=== PATIENT | male | born 1955 | race Caucasian/White ===

== ENCOUNTER 2019-01-19 08:06 | Emergency (ER) | payer MEDICARE, MEDICAID ==
[2019-01-19 08:09] VITALS: BMI 29.5
[2019-01-19 08:11] VITALS: PULSE 86; RESP 17; TEMP 97.3; O2SAT 97
--- NOTE | 2019-01-19 08:41 | ED PDOC ---
HPI: Hypertension/Hypotension Time Seen by Provider: 01/19/19 08:24 Chief Complaint (Nursing): High Blood Pressure Chief Complaint (Provider): High Blood Pressure History Per: Patient History/Exam Limitations: no limitations Current Symptoms Are (Timing): Better Additional Complaint(s): 63 year old male with medical history of hypertension, presents to the emergency department for an evaluation of high blood pressure. Patient states he stopped taking his daily Losartan and Toprol on his own as he felt that his blood pressure was good. Recently, he was treated with antibiotics for a skin in fection then noticed his blood pressure was elevated. He restarted Losartan and has a pending appointment with his PCP on 01/22/19, however, came to ED today to get a refill for Toprol. Patient reports feeling slightly lightheaded but denies any nausea, vomiting, diarrhea, chest pain, shortness of breath, headache, weakness, numbness, or abdominal pain. Of note, patient states he took an extra blood pressure pill last night to compensate then, again, this morning. PCP: Dr. Ndiia Hogan Past Medical History Reviewed: Historical Data, Nursing Documentation, Vital Signs Vital Signs: Last Vital Signs Temp 97.3 F L 01/19/19 08:09 Pulse 86 01/19/19 08:09 Resp 17 01/19/19 08:09 BP 150/93 H 01/19/19 08:25 Pulse Ox 97 01/19/19 08:09 - Medical History PMH: Fractures (NASAL), HTN, Hypercholesterolemia, Kidney Stones (PASSED ON OWN), Chronic Kidney Disease - Family History Family History: States: CAD - Immunization History Hx Tetanus Toxoid Vaccination: No - Home Medications Home Medications: Ambulatory Orders Medication Instructions Recorded Losartan [Cozaar] 50 mg PO DAILY 03/04/15 - Allergies Allergies/Adverse Reactions: Allergies Allergy/AdvReac Type Severity Reaction Status Date / Time No Known Allergies Allergy Verified 06/05/14 12:26 Review of Systems ROS Statement: Except As Marked, All Systems Reviewed And Found Negative Cardiovascular: Positive for: Light Headedness (mild). Negative for: Chest Pain Respiratory: Negative for: Shortness of Breath Gastrointestinal: Negative for: Nausea, Vomiting, Abdominal Pain, Diarrhea Neurological: Negative for: Weakness, Numbness, Headache Physical Exam - Reviewed Nursing Documentation Reviewed: Yes Vital Signs Reviewed: Yes - Physical Exam Appears: Positive for: Well, Non-toxic, No Acute Distress Head Exam: Positive for: ATRAUMATIC, NORMAL INSPECTION, NORMOCEPHALIC Skin: Positive for: Normal Color. Negative for: Rash Eye Exam: Positive for: Normal appearance, EOMI, PERRL ENT: Positive for: Normal ENT Inspection. Negative for: Pharyngeal Erythema Neck: Positive for: Normal, Supple Cardiovascular/Chest: Positive for: Regular Rate, Rhythm, Chest Non Tender. Negative for: Murmur Respiratory: Positive for: Normal Breath Sounds. Negative for: Wheezing, Respiratory Distress Gastrointestinal/Abdominal: Positive for: Normal Exam, Soft. Negative for: Tenderness Extremity: Positive for: Normal ROM (upper/lower). Negative for: Pedal Edema, Calf Tenderness Neurological/Psych: Positive for: Awake, Alert, Normal Tone, Symmetric/Intact Strength (5/5), Oriented (x3), supply assistant II-XII (intact). Negative for: Lethargic, Motor/Sensory Deficits - Laboratory Results Result Diagrams: 01/19/19 09:02 01/19/19 09:02 Interpretation Of Abn Labs: no acute - ECG ECG: Positive for: Interpreted By Me, Viewed By Me ECG Rhythm: Positive for: Normal QRS, Normal ST Segment, Sinus Rhythm O2 Sat by Pulse Oximetry: 97 (RA) Pulse Ox Interpretation: Normal - CT Scan/US CT Other Rad Studies (CT/US): Read By Radiologist Other Rad Interpretation: NO ACUTE FINDING - Progress ED Course And Treament: Pt. stable. Fu with pcp to get any additional bp monitoring and management. AAOx3. Pain free. Tolerated PO. Fu with pcp. No dizziness. Medical Decision Making Medical Decision Making: Time: 830 Initial Plan: * CT head * EKG * Labs * IV fluids Scribe Attestation: Documented by Haleigh Vega, acting as a scribe for Sherman Chavis MD. Provider Scribe Attestation: All medical record entries made by the Scribe were at my direction and personally dictated by me. I have reviewed the chart and agree that the record accurately reflects my personal performance of the history, physical exam, medical decision making, and the department course for this patient. I have also personally directed, reviewed, and agree with the discharge instructions and disposition. Disposition - Clinical Impression Clinical Impression: HTN (hypertension), Dizziness - Patient ED Disposition Is Patient to be Admitted: No Counseled Patient/Family Regarding: Studies Performed, Diagnosis, Need For Followup - Disposition Referrals: [facility] [Outside] - 01/21/19 Disposition: Routine/Home Disposition Time: 11:47 Condition: STABLE Additional Instructions: Return if not better in 3 days. Instructions: High Blood Pressure in Adults, Dizziness, Nonvertigo, (DC) Forms: [facility] ED School/Work Excuse Print Language: LIBYAN
[2019-01-19] MEDS ORDERED: Sodium Chloride 0.9% 500 ML IV STA (08:46)
[2019-01-19 09:05] LABS: BASO % 0.9 % (0.0-2.0); EOS # 0.2 K/uL (0.0-0.7); EOS % 4.4 % (0.0-4.0); HEMOGLOBIN 14.8 g/dL (12.0-18.0); LYMPH # 1.4 K/uL (1.0-4.3); LYMPH % 26.4 % (20.0-40.0); MEAN CELL VOLUME 88.5 fl (80.0-94.0); MEAN CORPUSCULAR HEMOGLOBIN 29.3 pg (27.0-31.0); MEAN CORPUSCULAR HGB CONC 33.1 g/dL (33.0-37.0); MEAN PLATELET VOLUME 8.1 fl (7.2-11.7); MONO # 0.4 K/uL (0.0-0.8); MONO % 8.5 % (0.0-10.0); NEUT # 3.1 K/uL (1.8-7.0); NEUT % 59.8 % (50.0-75.0); RBC 5.05 Mil/uL (4.40-5.90); RED CELL DISTRIBUTION WIDTH 13.8 % (11.5-14.5); WHITE BLOOD COUNT 5.2 K/uL (4.8-10.8)
[2019-01-19 09:17] LABS: ALB/GLOB RATIO 1.2 (1.0-2.1); ALBUMIN 4.4 g/dL (3.5-5.0); BLOOD UREA NITROGEN 21 mg/dl (9-20); CALCIUM 9.7 mg/dL (8.4-10.2); GFR NON-AFRICAN AMERICAN > 60
[2019-01-19 09:18] LABS: ALT/SGPT 56 U/L (21-72); AST/SGOT 42 U/L (17-59)
--- NOTE | 2019-01-19 09:49 | CT ---
Date of service: 01/19/2019 PROCEDURE: CT HEAD WITHOUT CONTRAST. HISTORY: headache COMPARISON: CT head dated 06/05/2014. TECHNIQUE: Axial computed tomography images were obtained through the head/brain without intravenous contrast. Radiation dose: Total exam DLP = 902.47 mGy-cm. This CT exam was performed using one or more of the following dose reduction techniques: Automated exposure control, adjustment of the mA and/or kV according to patient size, and/or use of iterative reconstruction technique. FINDINGS: HEMORRHAGE: No intracranial hemorrhage. BRAIN: No mass effect or edema. Mild atrophy. Mild chronic microvascular ischemic changes. VENTRICLES: Unremarkable. No hydrocephalus. CALVARIUM: Chronic nasal bone fracture deformity. PARANASAL SINUSES: Mild scattered ethmoid air cell opacification. MASTOID AIR CELLS: Unremarkable as visualized. No inflammatory changes. OTHER FINDINGS: None. IMPRESSION: No acute intracranial pathology. Age-related changes. No significant interval change.
[2019-01-19 12:25] VITALS: BP 134/90
--- NOTE | 2019-01-20 21:28 | CARD ---
APPROVED REPORT Date of service: 01/19/2019 EKG Measurement Heart [id number] <Conclusion> Normal sinus rhythm Normal ECG
== END 2019-01-19 12:26 | disposition home or self-care (01) ==
LOC: H.ER 08:06
DX: R42 Dizziness and giddiness (principal); I10 Essential (primary) hypertension; I12.9 Hypertensive chronic kidney disease with stage 1 through stage 4 chronic kidney disease, or unspecified chronic kidney disease; Z82.49 Family history of ischemic heart disease and other diseases of the circulatory system; Z87.442 Personal history of urinary calculi
CPT/HCPCS: 70450; 80053; 84484; 85025; 93005; 99285; J7040